=== PATIENT | female | born 1950 | race Caucasian/White ===

== ENCOUNTER 2021-03-20 08:08 | Day surgery (SDC) | payer MEDICARE, BC ==
[~2021-03-20 08:08] MED LIST: Lidocaine 1% with EPINEPHrine 1:100,000 50 ML MDV ONE; Midazolam 1 MG/ML 2 ML SDV ONE; Propofol 200 MG/20 ML SDV ONE; fentaNYL 100 MCG/2 ML SDV ONE
[2021-03-20] MEDS ORDERED: ceFAZolin 2 GM in Premix Bag 1 BAG IV ONE (08:30)
[2021-03-20] MEDS ORDERED: ceFAZolin 2 GM in Sodium Chloride 0.9% 100 ML IV ONE (08:30)
[2021-03-20] MEDS ORDERED: Sodium Chloride 0.9% 1,000 ML IV SCH (08:30)
[2021-03-20] MEDS: Bupivacaine 0.5% 50 ML MDV ONE ×2 (08:37→10:10)
--- NOTE | 2021-03-20 13:52 | OR ---
DATE OF PROCEDURE: 03/20/2021 SURGEON: Kojo Chaudhari MD PROCEDURE: Excision of squamous cell carcinoma, left leg, 9.2 cm x 2.2 cm, full-thickness. COMPLICATION: None. HIRED HAND: None. ANESTHESIA: MAC. PREOPERATIVE DIAGNOSIS: Squamous cell carcinoma, biopsy proven. POSTOPERATIVE DIAGNOSIS: Squamous cell carcinoma, biopsy proven. RISKS: Risks, benefits, alternatives, and limitations including, but not limited to infection, bleeding, chronic wounds, chronic pain, and requirement for reoperation due to margin concerns and other risks not listed here were explained to the patient and wished to proceed. PROCEDURE IN DETAIL: The patient was placed in supine position. The squamous cell carcinoma was measured out. This was more superior inferior with respect to size compared to anterior posterior by probably a 2:1 margin. Therefore, incision would be made in a superior to inferior fashion. This was measured out to the size described above. Anesthetized with lidocaine mixed with Marcaine, and margins were measured out to be greater than 6 mm in a 360-degree fashion. Once this was marked using a marker, a 15 blade was used to excise the skin. This was then carried down with plasma blade to the fascia. This was then marked with a single stitch superior, double stitch anterior. The fascia was then from the subcutaneous tissue in a 360-degree fashion decreasing tension on wound. Wound was closed with interrupted 3-0 Vicryl sutures, tere, and horizontal mattress sutures with nylon. Dressings were applied. The patient tolerated the procedure well. Kojo Chaudhari MD /[id number]
== END 2021-03-20 13:06 | disposition home or self-care (01) ==
LOC: JP.SDS 08:08
PROVIDERS: ATTEND Surgery
DX: C44.729 Squamous cell carcinoma of skin of left lower limb, including hip (principal)
CPT/HCPCS: 11606; J0690; J2250; J2704; J3010; J3490; J7030